=== PATIENT | female | born 1950 | race Caucasian/White ===

== ENCOUNTER 2019-08-18 22:35 | Emergency (ER) | payer OTHER ==
[~2019-08-18] VITALS: Ht 160 cm; Wt 84.8 kg
[2019-08-18 23:16] VITALS: BP 132/73
--- NOTE | 2019-08-18 23:28 | NUR ---
PT TRIAGED, SENT BACK TO LOBBY AWAITING FOR BED
--- NOTE | 2019-08-19 01:20 | NUR ---
PT WHEELCHAIRED TO ER BED 9
--- NOTE | 2019-08-19 01:21 | NUR ---
DR. MCCONNELL BEDSIDE EVALUATING PT
--- NOTE | 2019-08-19 01:21 | NUR ---
68/M PRESENTED TO ED WITH C/O S/P TRIP AND FALL, IMPACT ON L KNEE AND L SHOULDER. REPORTS PAIN ON L KNEE, L SHOULDER AND L SIDE OF HEAD/NECK. L KNEE WITH 2CM LAC, BLEEDING CONTROLLED. DENIES LOC OR N/V. HX HTN, APPENDECTOMY RX [place], MELOXICAN
[2019-08-19] MEDS ORDERED: NEOMYCIN/POLYMYXIN/BACITRACIN 0.9 GM/1 PKT TP ONE (02:10)
--- NOTE | 2019-08-19 03:00 | NUR ---
ASSISTED PT TO RESTROOM VIA WHEELCHAIR. TOLERATED WELL. WILL CONTINUE TO MONITOR.
[2019-08-19] MEDS ORDERED: LIDOCAINE/EPI 1% 1:100000 20 ML VIAL INJ ONE (03:10)
[2019-08-19] MEDS ORDERED: KETOROLAC 30 MG/ML VIAL IM ONE (04:20)
[2019-08-19] MEDS ORDERED: KETOROLAC 30 MG/ML VIAL ONE (04:21)
--- NOTE | 2019-08-19 04:29 | NUR ---
PT SITTING IN BED WITH FAMILY AT BEDSIDE. VSS. WILL CONTINUE TO MONITOR
--- NOTE | 2019-08-19 04:54 | NUR ---
BACITRACIN WAS PLACED ON PTS WOUND AND A NON ADHERENT GAUZE TO COVER WOUND. ROLL GAUZE PLACED TO WRAP WOUND. PTS PMSC WNL.
[2019-08-19 05:09] VITALS: BP 177/84
--- NOTE | 2019-08-19 05:09 | NUR ---
Patient discharged with v/s stable. Written and verbal after care instructions given and explained. Patient alert, oriented and verbalized understanding of instructions. Ambulatory with steady gait. All questions addressed prior to discharge. ID band removed. Patient advised to follow up with PMD. Rx of ACETAMINOPHEN, BACITRACIN given. Patient educated on indication of medication including possible reaction and side effects. Opportunity to ask questions provided and answered.
== END 2019-08-19 05:09 | disposition home or self-care (01) ==
LOC: MED 22:35
DX: S81.012A Laceration without foreign body, left knee, initial encounter (principal); S46.912A Strain of unspecified muscle, fascia and tendon at shoulder and upper arm level, left arm, initial encounter; M54.2 Cervicalgia; I10 Essential (primary) hypertension; Z90.49 Acquired absence of other specified parts of digestive tract; W18.09XA Striking against other object with subsequent fall, initial encounter; Y93.89 Activity, other specified; Y92.89 Other specified places as the place of occurrence of the external cause; Y99.8 Other external cause status
CPT/HCPCS: 12001; 73030; 73562; 96372; 99283; J1885; J2001; Q0092